=== PATIENT | female | born 1950 | race Caucasian/White ===

== ENCOUNTER 2019-12-23 14:13 | Inpatient (IN) | payer OTHER, MEDICARE ==
[~2019-12-23] VITALS: Ht 167.6 cm; Wt 68.5 kg
[~2019-12-23 14:13] MED LIST: ACETAMINOPHEN-1 EAC1 PO; ARTIFICIAL TEAR15 M1 OPHTHALMIC; AZITHROMYCIN 2250 MG PO; B12INJ IM; CARAFATE 1 GM TA1 G1 PO; CELEXA10 MG PO; CYCLOBENZAPRINE5 MG PO; CYMBALTA30 MG PO; DESYREL150 MG; HYDROCODONE-APA1 TA1 PO; IBUPROFEN 400400 M2 PO; IBUPROFEN 600600 M1 PO; INFED100 MG/2 M IJ; MACROBID 100 M100 M1 PO; MAG-OXIDE400 MG PO; MEDROLDOSEPACK PO; MOBIC15 MG PO; NABUMETONE 750750 M1 PO; NOHOMEMEDICATIONS; NORCO 5-325 TA1 EACH PO; PHENERGAN 25 MG25 M1 PO; POTASSIUM20 PO; PRILOSEC OTC20 MG PO; ROBAXIN500 MG PO; ROXIFOL-D TA500 UNIT PO; SENNA-DOCUSATE1 EACH PO; SKELAXIN 800 M800 M1 PO; TRAZODONE 150150 M1 PO; TRAZODONE HCL50 MG PO; UNICOMPLEX M TA1 TA1 PO; VALIUM5 MG PO; VICODIN 5-3001 EACH PO; XANAX 0.5 MG0.5 MG; XANAX 0.5 MG0.5 MG PO; ZOFRAN4 MG PO; ZYRTEC10 MG PO
[2019-12-23 14:18] VITALS: BP 137/84
[2019-12-23 14:45] LABS: ABSOLUTE LYMPHOCYTES 2.2 thou/uL (0.8-5.3); ABSOLUTE MONOCYTES 0.6 thou/uL (0.0-1.2); ABSOLUTE NEUTROPHILS 3.3 thou/uL (1.6-8.1); BASOPHILS 0.7 %; EOSINOPHILS 0.6 %; HEMATOCRIT 40.8 % (37.0-47.0); HEMOGLOBIN 13.7 gm/dL (12.0-15.0); LYMPHOCYTES 36.2 %; MCH 30.7 pg (26.0-34.0); MCHC 33.6 g/dL (28.0-37.0); MCV 91.3 fL (80.0-100.0); MPV 7.5 fl. (7.2-11.1); NUCLEATED RBCS 0 /100WBC; PLATELET COUNT* 241 thou/uL (150-400); POLYS 53.5 %; RBC 4.48 mil/uL (4.20-5.00); RDW-CV 13.2 % (10.5-14.5); WBC 6.1 thou/uL (4.0-11.0)
[2019-12-23 14:50] LABS: CALCIUM 8.5 mg/dL (8.5-10.1); CREATININE 1.1 mg/dL (0.6-1.3); POTASSIUM 3.1 mmol/L (3.5-5.1)
[2019-12-23 14:56] LABS: APTT 27.3 Seconds (25.0-31.3); PROTIME 10.4 Seconds (9.20-11.50)
[2019-12-23 15:05] LABS: ALBUMIN 3.8 g/dL (3.4-5.0); MAGNESIUM 1.6 mg/dL (1.8-2.4); TOTAL BILIRUBIN 1.5 mg/dL (<0.1-1.0); TOTAL PROTEIN 7.4 g/dL (6.4-8.2)
--- NOTE | 2019-12-23 17:08 | EKG ---
[place] [address] ELECTROCARDIOGRAM REPORT Name: VIRGINIA MARCUS Room: [place] [address] ADM IN .R.#: [id number] Admission: 12/23/19 Attend Phys: Love ponce Sa Discharge: Date of : 48 Date of Service: 12/23/19 1417 Report #: [id number] THIS REPORT FOR: //name// [facility] ED Test Date: 2019-12-23 Test Time: 14:17:43 Pat Name: VIRGINIA MARCUS Department: Room: [facility] Gender: F Manager Engagement: : 1950 Requested By: Order Number: [id number] MD: Kayode Trujillo Measurements Intervals [place] Rate: 76 P: 46 OK: 123 QRS: -26 QRSD: 93 T: 49 QT: 404 QTc: 455 Interpretive Statements Sinus rhythm Borderline left axis deviation Compared to ECG 05/26/2012 16:00:22 No significant changes Electronically Signed On 12-23-2019 17:06:58 CDT by Kayode Trujillo [email or web address] <ELECTRONICALLY SIGNED> By: Kayode Trujillo MD, FACC 12/23/19 1706 1417 1417 Kayode Trujillo MD, [facility] /EPI
[2019-12-23 18:10] LABS: CHOLESTEROL 227 mg/dL (<200); HDL CHOLESTEROL 92 mg/dL (>40); LDL CHOLESTEROL 118 mg/dL (<100); TC:HDL 2.5 Ratio (Not establshd); TRIGLYCERIDE 88 mg/dL (<150); VLDL 18 mg/dL (<40)
[2019-12-23 18:11] LABS: SERUM ASSESSMENT Clear
[2019-12-23 18:43] VITALS: BP 139/69
[2019-12-23 20:00] VITALS: BP 113/57
[2019-12-23 23:42] VITALS: BP 124/56
[2019-12-24 04:19] LABS: HEMATOCRIT 34.8 % (37.0-47.0); MCH 30.7 pg (26.0-34.0); MCHC 33.6 g/dL (28.0-37.0); MCV 91.2 fL (80.0-100.0); MPV 7.3 fl. (7.2-11.1); RBC 3.81 mil/uL (4.20-5.00); RDW-CV 12.9 % (10.5-14.5); WBC 4.8 thou/uL (4.0-11.0)
[2019-12-24 04:27] LABS: HEMOGLOBIN 11.7 gm/dL (12.0-15.0)
[2019-12-24 04:30] VITALS: BP 117/50
[2019-12-24 04:40] LABS: ALBUMIN 2.8 g/dL (3.4-5.0); CALCIUM 7.7 mg/dL (8.5-10.1); MAGNESIUM 1.9 mg/dL (1.8-2.4); PHOSPHORUS* 3.9 mg/dL (2.5-4.9); TOTAL BILIRUBIN 1.5 mg/dL (<0.1-1.0); TOTAL PROTEIN 5.7 g/dL (6.4-8.2)
[2019-12-24 09:05] LABS: AMP/METHAMP Negative (Negative); BARBITURATES Negative (Negative); BENZODIAZEPINES POSITIVE (Negative); COCAINE Negative (Negative); METHADONE Negative (Negative); OPIATES POSITIVE (Negative); PCP Negative (Negative); THC Negative (Negative)
[2019-12-24 11:21] LABS: HEMATOCRIT 35.7 % (37.0-47.0); HEMOGLOBIN 12.2 gm/dL (12.0-15.0)
[2019-12-24 12:28] VITALS: BP 145/42
--- NOTE | 2019-12-24 14:07 | 2DMMODE ---
[place] [address] 2 D/M-MODE ECHOCARDIOGRAM Name: VIRGINIA MARCUS Room: [address] IN M.R.#: [id number] Admission: 12/23/19 Attend Phys: Love ponce Sa Discharge: Date of : 48 Date of Service: 12/24/19 1405 Report #: [id number] THIS REPORT FOR: cc: Gideon Brown MD, Brian M. MD Liston, Michael J. MD [facility] ~ APPROVED REPORT Study performed: 12/24/2019 09:03:31 EXAM: Comprehensive 2D, Doppler, and color-flow Echocardiogram BSA: 1.22 HR: 70 bpm BP: 117/50 mmHg Other Information Study Quality: Good Indications Chest Pain 2D Dimensions IVSd: 9.96 (7-11mm) LVOT Diam: 19.14 (18-24mm) LVDd: 36.56 mm PWd: 9.06 (7-11mm) Ascending Ao: 25.04 (22-36mm) LVDs: 28.33 (25-40mm) Aortic Root: 23.51 mm Volumes Left Atrial Volume (Systole) LA ESV Index: 21.30 mL/m2 Aortic Valve AoV Peak Fitz.: 1.41 m/s AO Peak Gr.: 7.99 mmHg LVOT Max P.70 mmHg AO Mean Gr.: 4.84 mmHg LVOT Mean P.43 mmHg LVOT Max V: 1.29 m/s AO V2 VTI: 34.26 cm LVOT Mean V: 0.85 m/s JYO (VTI): 2.76 cm2 LVOT V1 VTI: 32.91 cm Mitral Valve E/A Ratio: 0.84 MV Decel. Time: 227.91 [place] [address] 2 D/M-MODE ECHOCARDIOGRAM Name: SYLVIAVIRGINIA CHAIDEZ Carlos Room: [address] IN .R.#: [id number] Admission: 12/23/19 Attend Phys: Love ponce Sa Discharge: Date of : 48 Date of Service: 12/24/19 1405 Report #: [id number] MV E Max Fitz.: 0.80 m/s MV PHT: 66.09 ms MVA (PHT): 3.33 cm2 TDI E/Lateral E': 7.27 E/Medial E': 8.89 Medial E' Fitz.: 0.09 m/s Lateral E' Fitz.: 0.11 m/s Pulmonary Valve PV Peak Fitz.: 1.05 m/s PV Peak Gr.: 4.43 mmHg Tricuspid Valve RAP Estimate: 5.00 mmHg TR Peak Gr.: 30.70 mmHg RVSP: 35.70 mmHg PA Pressure: 35.70 mmHg Left Ventricle The left ventricle is normal size. There is normal LV segmental wall motion. There is normal left ventricular wall thickness. Left ventricular systolic function is normal. LVEF is 60-65%. Grade I - abnormal relaxation pattern. Right Ventricle The right ventricle is normal size. The right ventricular systolic function is normal. Atria The left atrium size is normal. The right atrium size is normal. Aortic Valve The aortic valve is normal in structure. No aortic regurgitation is present. There is no aortic valvular stenosis. Mitral Valve The mitral valve is normal in structure. Trace mitral regurgitation. No evidence of mitral valve stenosis. Tricuspid Valve The tricuspid valve is normal in structure. Trace tricuspid regurgitation. Pulmonic Valve The pulmonary valve is normal in structure. There is no pulmonic [place] [address] 2 D/M-MODE ECHOCARDIOGRAM Name: VIRGINIA MARCUS Room: [address]#: [id number] Admission: 12/23/19 Attend Phys: Love ponce Sa Discharge: Date of : 48 Date of Service: 12/24/19 1405 Report #: [id number] Great Vessels The aortic root is normal in size. IVC is normal in size and collapses >50% with inspiration. Pericardium There is no pericardial effusion. <Conclusion> The left ventricle is normal size. There is normal left ventricular wall thickness. Left ventricular systolic function is normal. LVEF is 60-65%. Grade I - abnormal relaxation pattern. Trace mitral regurgitation. Trace tricuspid regurgitation. IVC is normal in size and collapses >50% with inspiration. <ELECTRONICALLY SIGNED> By: Kayode Trujillo MD, FACC 12/24/19 1405 1405 1405 Kayode Trujillo MD, FACC /INF
[2019-12-24 17:10] VITALS: BP 131/67
[2019-12-24 19:30] VITALS: BP 103/41
[2019-12-24 19:45] VITALS: BP 153/95
[2019-12-25 00:06] VITALS: BP 120/65
[2019-12-25 02:08] LABS: GLYCOHEMOGLOBIN (HGB A1C) 5.2 % (4.8-5.6)
[2019-12-25 04:09] VITALS: BP 114/56
[2019-12-25 05:45] LABS: ABSOLUTE LYMPHOCYTES 1.6 thou/uL (0.8-5.3); ABSOLUTE MONOCYTES 0.5 thou/uL (0.0-1.2); ABSOLUTE NEUTROPHILS 2.3 thou/uL (1.6-8.1); BASOPHILS 0.6 %; EOSINOPHILS 0.9 %; HEMOGLOBIN 12.4 gm/dL (12.0-15.0); LYMPHOCYTES 35.8 %; MCH 30.9 pg (26.0-34.0); MCHC 33.6 g/dL (28.0-37.0); MONOCYTES 10.3 %; MPV 7.7 fl. (7.2-11.1); NUCLEATED RBCS 0 /100WBC; PLATELET COUNT* 208 thou/uL (150-400); POLYS 52.4 %; RBC 4.02 mil/uL (4.20-5.00); RDW-CV 12.9 % (10.5-14.5); WBC 4.4 thou/uL (4.0-11.0)
[2019-12-25 05:55] LABS: ALBUMIN 2.8 g/dL (3.4-5.0); CALCIUM 8.3 mg/dL (8.5-10.1); CREATININE 0.8 mg/dL (0.6-1.3); POTASSIUM 4.1 mmol/L (3.5-5.1); TOTAL BILIRUBIN 0.9 mg/dL (<0.1-1.0); TOTAL PROTEIN 5.9 g/dL (6.4-8.2)
[2019-12-25 08:00] VITALS: BP 163/74
[2019-12-25] MEDS ORDERED: CYMBALTA30 MG PO (09:51)
[2019-12-25 16:20] VITALS: BP 133/71
[2019-12-25 20:00] VITALS: BP 149/83
[2019-12-26 00:46] VITALS: BP 116/63
[2019-12-26 03:52] LABS: HEMATOCRIT 36.4 % (37.0-47.0); HEMOGLOBIN 12.4 gm/dL (12.0-15.0)
[2019-12-26 08:00] VITALS: BP 102/60
--- NOTE | 2019-12-26 14:10 | CON ---
[address] [address] CONSULTATION Name: VIRGINIA MARCUS Room: [address] IN M.R.#: [id number] Admission: 12/23/19 Attend Phys: Love Bajwa Discharge: Date of : 48 Report #: [id number] THIS REPORT FOR: //name// cc: Gideon Brown MD, Brian M. MD ~ THIS REPORT FOR: //name// CC: Gideon Escamilla DATE OF SERVICE: 12/24/2019 REQUESTING PHYSICIAN: Love Escamilla MD REASON FOR CONSULT: Noncardiac chest pain and rectal bleeding. There is also abnormal CT suggestive of possible intussusception. HISTORY OF PRESENT ILLNESS: This is a 69-year-old female with a history of colonoscopy in the past couple of years, who reports that she usually has IBS symptoms and her stools are loose. She has never had rectal bleeding, but prior to her admission, she noted that she had a lot of blood in her underwear. She also was complaining of noncardiac chest pain, which has been worked out. She denies nausea, vomiting, dysphagia and odynophagia. The patient reports that she has had gastric surgeries in the past, but does not know the details. PAST MEDICAL HISTORY: Significant for history of irritable bowel syndrome diarrhea predominant, kidney stone, tonsillectomy, breast reduction, gallbladder disease, status post cholecystectomy, appendectomy and hysterectomy. ALLERGIES: SIGNIFICANT TO CONTRAST DYE, DOXYCYCLINE, IODINE, MORPHINE, NAPROXEN AND TETANUS AND DIPHTHERIA TOXOID. MEDICATIONS: Please refer to MAR. SOCIAL HISTORY: The patient lives at home. Denies tobacco or alcohol use. Apparently, this is around anniversary when her passed. PHYSICAL EXAMINATION: VITAL SIGNS: Reveals blood pressure of 163/74, respirations 16, pulse 71, temperature 98.1. LUNGS: Clear. CARDIOVASCULAR: Regular. ABDOMEN: Soft, nontender, nondistended[place] [address] CONSULTATION Name: SYLVIAKAYLYNNJORICathleen Gonzalez Room: [address] IN [facility]#: [id number] Admission: 12/23/19 Attend Phys: Love Bajwa Discharge: Date of : 48 Report #: [id number] LABORATORY DATA: Reveal sodium of 141, potassium 4.1, BUN is 6, creatinine 0.8. Liver function tests are all within normal limit. Albumin is 2.8, total protein 5.9. INR is 1.0. WBC is 4.4 with hemoglobin of 12.4 and platelets of 208. IMAGING: CT as discussed above. ASSESSMENT AND PLAN: The patient with rectal bleeding, who also has abnormal CT and noncardiac chest pain. She claims that she has had gastric surgery in the past, but does not know the detail and why it was done. We will perform upper and lower endoscopy tomorrow to further evaluate her symptoms. The patient is agreeable with plan. <ELECTRONICALLY SIGNED> By: Tigist Juarez MD 12/26/19 1410 1547 [id number] Juarez MD /nt
[2019-12-26 15:45] VITALS: BP 147/81
[2019-12-26 20:00] VITALS: BP 121/68
[2019-12-27] VITALS: BP 124/60
[2019-12-27 05:03] LABS: CALCIUM 8.1 mg/dL (8.5-10.1); CREATININE 0.9 mg/dL (0.6-1.3); MAGNESIUM 1.9 mg/dL (1.8-2.4); POTASSIUM 3.6 mmol/L (3.5-5.1)
[2019-12-27] MEDS ORDERED: MIRALAX17 GM PO (09:22)
[2019-12-27 11:41] VITALS: BP 134/86
[2019-12-27 11:45] VITALS: BP 124/60
== END 2019-12-27 12:35 | disposition home or self-care (01) | DRG 378 ==
LOC: M.ERS 14:13 → M.TBA-ER 15:51 → M.2W 15:51
PROVIDERS: Emergency Medicine Emergency Medical Services; Internal Medicine; Internal Medicine Gastroenterology; Nurse Practitioner; Surgery; ADMIT Family Medicine
PROC: 0DJD8ZZ Inspection of Lower Intestinal Tract, Via Natural or Artificial Opening Endoscopic (ICD-10-PCS; principal; 2019-12-26)
PROC: 0DJ08ZZ Inspection of Upper Intestinal Tract, Via Natural or Artificial Opening Endoscopic (ICD-10-PCS; principal; 2019-12-26)
DX: K92.2 Gastrointestinal hemorrhage, unspecified (principal); K56.1 Intussusception; E44.0 Moderate protein-calorie malnutrition; G47.00 Insomnia, unspecified; E87.6 Hypokalemia; E83.42 Hypomagnesemia; Z60.2 Problems related to living alone; F41.1 Generalized anxiety disorder; K58.9 Irritable bowel syndrome, unspecified; R07.89 Other chest pain; K64.8 Other hemorrhoids; Z87.442 Personal history of urinary calculi; Z90.49 Acquired absence of other specified parts of digestive tract; Z68.24 Body mass index [BMI] 24.0-24.9, adult; Z88.7 Allergy status to serum and vaccine; Z88.8 Allergy status to other drugs, medicaments and biological substances; Z88.6 Allergy status to analgesic agent; Z91.041 Radiographic dye allergy status; Z80.0 Family history of malignant neoplasm of digestive organs; Z79.899 Other long term (current) drug therapy

== ENCOUNTER 2020-06-02 01:04 | Inpatient (IN) | payer OTHER, MEDICARE ==
[~2020-06-02] VITALS: Ht 167.6 cm; Wt 69.9 kg
[2020-06-02] VITALS (7 sets, daily range): BP systolic 134–147; BP diastolic 54–99
--- NOTE | ~2020-06-02 | CON ---
[address] [address] CONSULTATION Name: VIRGINIA MARCUS Room: [address] IN M.R.#: [id number] Admission: 06/02/20 Attend Phys: Surya Cai MD Discharge: Date of : 48 Report #: [id number] THIS REPORT FOR: //name// cc: Gideon Brown MD, Brian M. MD ~ DATE OF SERVICE: 06/02/2020 REQUESTING PHYSICIAN: Ileana Hernadez MD INDICATION FOR CONSULTATION: COVID-19. HISTORY OF PRESENT ILLNESS: This is a 69-year-old female with past medical history as mentioned above. Patient is a lifetime nonsmoker. The patient does not have a previously diagnosed history of lung disease. The patient is now admitted with progressively increasing cough and shortness of breath as well as body aches over the last several days. The patient also had generalized malaise. The patient does work at 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 She does report a reduction in appetite and has no other complaints. At this time she is on room air and is not febrile. REVIEW OF SYSTEMS: A 12 points is negative except as mentioned above. PAST MEDICAL HISTORY: Multiple allergies, possible history of bronchial asthma, malabsorption syndrome with low magnesium and potassium, irritable bowel syndrome, kidney stones, breast reduction, tonsillectomy, cholecystectomy, hysterectomy, iron deficiency anemia, B12 deficiency, anxiety, depression, trauma to the right side of face and mumps, measles, rubella. SOCIAL HISTORY: Lifetime nonsmoker. No known history of heavy alcohol use or illegal drug use. CURRENT MEDICATIONS: List in [employer] reviewed. HOME MEDICATIONS: List also in [employer] reviewed. ALLERGIES: THERE ARE MULTIPLE ALLERGIES LISTED ON THE RECORD THESE ARE REVIEWED, AMONGST OTHERS THE PATIENT IS REPORTED TO BE ALLERGIC TO IODINE, DOXYCYCLINE, SEAFOOD, AND MORPHINE. FAMILY HISTORY: There is no pertinent family history. PHYSICAL EXAMINATION: GENERAL: She was alert, awake and oriented, does not appear to be in any distress at this time. VITAL SIGNS: Had a pulse of 78 and a blood pressure of 140/69, saturating 93% [place] [address] CONSULTATION Name: VIRGINIA MARCUS Room: [address] IN [facility]#: [id number] Admission: 06/02/20 Attend Phys: Surya Cai MD Discharge: Date of : 48 Report #: [id number] on room air, respiratory rate 16, afebrile with a temperature of 36.3. HEENT: Head is normocephalic and atraumatic. NECK: Does not show raised JVP. CHEST: Essentially clear to auscultation. HEART: Regular, no murmur. ABDOMEN: Soft and nontender. EXTREMITIES: Lower extremities show no edema, no calf tenderness. SKIN: Dry and intact. NEUROLOGICAL: Moves all extremities bilaterally equally and spontaneously with no focal deficit identified. LABORATORY DATA: The patient's chest x-ray does show some hyperinflation. I do not see any significant infiltrates or pulmonary vascular congestion. The patient's lab work is in [employer] and this is reviewed. She is positive for COVID-19 antigen. ASSESSMENT AND PLAN: 1. COVID-19, I agree with treating her with Solu-Medrol as it does appear to me that she has had bronchospasm as well as discussed below. If she does not improve, then I do plan to have her switch this over to oral dexamethasone tomorrow. Recommend watching her respiratory status and O2 saturations closely. If there is any decline I will have a very low threshold of starting remdesivir. 2. Bronchospasm/history of multiple allergies/possible underlying bronchial asthma. The patient's chest x-ray does show some hyperinflation, which does appear to be more than her previous chest x-rays. She also does have a history of multiple allergies. It is possible that she has previously undiagnosed underlying asthma as well. This may need to be evaluated further later. For now she is on Solu-Medrol and I did add an albuterol inhaler. 3. Acute bronchitis/possible underlying bacterial secondary infection, it appears reasonable to continue Zithromax and ceftriaxone at this time. We will follow and adjust therapy accordingly. 4. Deep venous thrombosis prophylaxis, Lovenox. By: 0009 0051Aana lilia Miller MD /nt
[~2020-06-02 01:04] MED LIST changes: +CYANOCOBAL1000 MCG/1 IM; +DERMACINRX5000 UNI1 PO; +MIRALAX17 GM PO; -ROXIFOL-D TA500 UNIT PO; -XANAX 0.5 MG0.5 MG PO; +XANAX1 MG PO
[2020-06-02 01:50] LABS: ABSOLUTE LYMPHOCYTES 1.3 thou/uL (0.8-5.3); ABSOLUTE MONOCYTES 0.5 thou/uL (0.0-1.2); ABSOLUTE NEUTROPHILS 2.2 thou/uL (1.6-8.1); BASOPHILS 1.1 %; EOSINOPHILS 0.4 %; HEMOGLOBIN 13.7 gm/dL (12.0-15.0); LYMPHOCYTES 32.1 %; MCHC 33.4 g/dL (28.0-37.0); MCV 92.8 fL (80.0-100.0); MPV 6.7 fl. (7.2-11.1); NUCLEATED RBCS 0 /100WBC; PLATELET COUNT* 187 thou/uL (150-400); POLYS 53.4 %; RBC 4.42 mil/uL (4.20-5.00); RDW-CV 12.5 % (10.5-14.5); WBC 4.1 thou/uL (4.0-11.0)
[2020-06-02 01:59] LABS: CALCIUM 8.4 mg/dL (8.5-10.1); CREATININE 1.1 mg/dL (0.6-1.3); POTASSIUM 3.4 mmol/L (3.5-5.1)
[2020-06-02 02:03] LABS: INFLUENZA A ANTIGEN Negative (Negative); INFLUENZA B ANTIGEN Negative (Negative)
[2020-06-02 02:04] LABS: ALBUMIN 3.4 g/dL (3.4-5.0); TOTAL BILIRUBIN 0.6 mg/dL (<0.1-1.0)
[2020-06-02] MEDS ORDERED: BENADRYL25 MG PO (05:38)
[2020-06-02] MEDS ORDERED: DESYREL150 MG PO (05:38)
[2020-06-03] VITALS: BP 139/75
[2020-06-03 04:30] VITALS: BP 138/56
[2020-06-03 05:37] LABS: HEMOGLOBIN 12.7 gm/dL (12.0-15.0); MCH 30.9 pg (26.0-34.0); MCHC 33.3 g/dL (28.0-37.0); MCV 92.7 fL (80.0-100.0); MPV 7.3 fl. (7.2-11.1); RBC 4.1 mil/uL (4.20-5.00); RDW-CV 12.5 % (10.5-14.5); WBC 12.5 thou/uL (4.0-11.0)
[2020-06-03 05:59] LABS: CALCIUM 8.2 mg/dL (8.5-10.1); CREATININE 0.8 mg/dL (0.6-1.3); MAGNESIUM 1.8 mg/dL (1.8-2.4); POTASSIUM 4.1 mmol/L (3.5-5.1); TOTAL BILIRUBIN 0.5 mg/dL (<0.1-1.0); TOTAL PROTEIN 6.3 g/dL (6.4-8.2)
[2020-06-03] MEDS ORDERED: VENTOLIN HFA 1818 GM INH (07:15)
[2020-06-03] MEDS ORDERED: LEVOFLOXACIN750 MG PO (07:15)
[2020-06-03] MEDS ORDERED: PREDNISONE 10 M10 MG PO (07:15)
[2020-06-03 08:00] VITALS: BP 175/70
[2020-06-03 12:00] VITALS: BP 140/72
--- NOTE | 2020-06-03 13:40 | EKG ---
[place] [address] ELECTROCARDIOGRAM REPORT Name: VIRGINIA MARCUS Room: [address] ADM IN M.R.#: [id number] Admission: 06/02/20 Attend Phys: Surya Cai, Discharge: Date of : 48 Date of Service: 06/02/20 0348 Report #: [id number] THIS REPORT FOR: //name// [facility] ED Test Date: 2020-06-02 Test Time: 03:48:34 Pat Name: VIRGINIA MARCUS Department: Room: [facility] Gender: F Histotechnologist: FANNIE : 1950 Requested By: Odell Laws Order Number: [id number] MD: Gray Sotelo Measurements Intervals [place] Rate: 58 P: 25 TN: 137 QRS: -33 QRSD: 96 T: 38 QT: 425 QTc: 418 Interpretive Statements Sinus rhythm Left axis deviation Abnormal R-wave progression, late transition Compared to ECG 12/23/2019 14:17:43 No significant changes Electronically Signed On 06-03-2020 13:40:26 CDT by Gray Sotelo [email or web address] <ELECTRONICALLY SIGNED> By: Gray Sotelo MD, FACC 06/03/20 1340 7 Gray Sotelo MD, FAC /EPI
[2020-06-03 13:41] VITALS: BP 175/70
== END 2020-06-03 15:00 | disposition home or self-care (01) | DRG 177 ==
LOC: M.ERS 01:04 → M.TBA-ER 03:11 → M.2W 03:11 → M.TBA-ER 03:11 → M.2W 04:31
PROVIDERS: Family Medicine; Internal Medicine; ADMIT Internal Medicine; ATTEND Internal Medicine
DX: U07.1 COVID-19 (principal); J12.89 Other viral pneumonia; J15.6 Pneumonia due to other Gram-negative bacteria; F41.9 Anxiety disorder, unspecified; F32.9 Major depressive disorder, single episode, unspecified; J20.9 Acute bronchitis, unspecified; D50.9 Iron deficiency anemia, unspecified; Z87.442 Personal history of urinary calculi; Z90.49 Acquired absence of other specified parts of digestive tract; Z90.710 Acquired absence of both cervix and uterus; Z88.7 Allergy status to serum and vaccine; Z88.8 Allergy status to other drugs, medicaments and biological substances; Z88.6 Allergy status to analgesic agent; Z91.041 Radiographic dye allergy status; Z91.013 Allergy to seafood; Z79.899 Other long term (current) drug therapy; Z23 Encounter for immunization

== ENCOUNTER 2020-06-10 04:07 | Inpatient (IN) | payer OTHER, MEDICARE ==
[~2020-06-10] VITALS: Ht 167.6 cm; Wt 69.4 kg
[~2020-06-10 04:07] MED LIST changes: +BENADRYL25 MG PO; +DESYREL150 MG PO; +LEVOFLOXACIN750 MG PO; +PREDNISONE 10 M10 MG PO; +VENTOLIN HFA 1818 GM INH
[2020-06-10 05:00] VITALS: BP 118/61
[2020-06-10 05:18] LABS: ABSOLUTE LYMPHOCYTES 2.4 thou/uL (0.8-5.3); ABSOLUTE MONOCYTES 0.8 thou/uL (0.0-1.2); ABSOLUTE NEUTROPHILS 3.3 thou/uL (1.6-8.1); BASOPHILS 0.7 %; EOSINOPHILS 0.4 %; HEMATOCRIT 42.6 % (37.0-47.0); HEMOGLOBIN 14.3 gm/dL (12.0-15.0); LYMPHOCYTES 36.7 %; MCH 30.9 pg (26.0-34.0); MCHC 33.6 g/dL (28.0-37.0); MCV 92.1 fL (80.0-100.0); MONOCYTES 11.6 %; MPV 7.7 fl. (7.2-11.1); NUCLEATED RBCS 0 /100WBC; PLATELET COUNT* 181 thou/uL (150-400); POLYS 50.6 %; RBC 4.63 mil/uL (4.20-5.00); RDW-CV 12.4 % (10.5-14.5); WBC 6.5 thou/uL (4.0-11.0)
[2020-06-10 05:28] LABS: CALCIUM 8.2 mg/dL (8.5-10.1); CREATININE 1.1 mg/dL (0.6-1.3); POTASSIUM 3.4 mmol/L (3.5-5.1)
[2020-06-10 05:38] LABS: ALBUMIN 3.1 g/dL (3.4-5.0); TOTAL BILIRUBIN 0.7 mg/dL (<0.1-1.0)
[2020-06-10 11:06] VITALS: BP 126/65
--- NOTE | 2020-06-10 11:35 | EKG ---
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: FANNIE : 1950 Requested By: Chris Butts Order Number: [id number] MD: Binu Bradley Measurements Intervals [place] Rate: 81 P: 18 MS: 123 QRS: -37 QRSD: 92 T: 49 QT: 377 QTc: 438 Interpretive Statements Sinus rhythm Left axis deviation Baseline wander in lead(s) V2,V3 Compared to ECG 06/02/2020 03:48:34 No significant changes Electronically Signed On 06-10-2020 11:35:32 THERMOFORMING OPERATOR by Binu Bradley [email or web address] <ELECTRONICALLY SIGNED> By: Binu Bradley MD, [facility] 06/10/20 1135 0447 0447 Binu Bradley MD, [facility] /EPI
[2020-06-10 14:57] VITALS: BP 122/51
[2020-06-10 18:55] VITALS: BP 129/63
[2020-06-10 22:28] VITALS: BP 112/59
[2020-06-10 23:00] VITALS: BP 122/69
[2020-06-11 04:36] VITALS: BP 97/47
[2020-06-11 05:01] LABS: HEMATOCRIT 35.6 % (37.0-47.0); MCH 31.3 pg (26.0-34.0); MCHC 33.4 g/dL (28.0-37.0); MCV 93.6 fL (80.0-100.0); MPV 7.7 fl. (7.2-11.1); RBC 3.8 mil/uL (4.20-5.00); RDW-CV 12.6 % (10.5-14.5); WBC 6.3 thou/uL (4.0-11.0)
[2020-06-11 05:16] LABS: HEMOGLOBIN 11.9 gm/dL (12.0-15.0)
[2020-06-11 05:25] LABS: CALCIUM 7.8 mg/dL (8.5-10.1); CREATININE 0.8 mg/dL (0.6-1.3); MAGNESIUM 1.7 mg/dL (1.8-2.4)
[2020-06-11 08:00] VITALS: BP 113/59
[2020-06-11 12:58] VITALS: BP 146/69
--- NOTE | 2020-06-11 14:37 | NUR ---
Pt covid positive, moved to covid unit. Pt did not answer phone, spoke with Maximus truong, on phone. Pt resides at home with her dtr. Active and independent, continues to work. No DME. No hx of HH or SNF. Pt's dtr has also tested positive for covid, grandson is negative. Per alexi, Pt reported heavy CP with coughing prior to admission. Goal is home at [place]. Following.
[2020-06-11 16:41] VITALS: BP 116/39
--- NOTE | 2020-06-11 18:42 | NUR ---
ASSUMED PT CARE AT 0730, PT AOX4, NO C/O PAIN OR SHORTNESS OF BREATH. 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 PT HAD FURTHER C/O ANXIETY THIS AFTERNOON TREATED W/ XANAX. PT HAD CTA OF CHEST TODAY, SEE RESULTS. PT GOAL IS TO WORK ON MANAGING ANXIETY AND INCREASING ACTIVITY. AM ASSESSMENT CHARTED, MEDS PER MAR, HOURLY ROUNDING OBSERVED, FALL PRECAUTIONS IN PLACE, CALL LIGHT W/IN REACH, PT MOVED TO ROOM 208 IN [facility].
[2020-06-11 21:00] VITALS: BP 119/54
[2020-06-11 23:59] VITALS: BP 137/61
[2020-06-12 04:55] VITALS: BP 113/54
[2020-06-12 08:00] VITALS: BP 117/46
--- NOTE | 2020-06-12 08:12 | NUR ---
ASSUMED PT'S CARE @ 1900. PT ALERT AND ORIENTED. VSS ON RA. MEDS GIVEN PER EMAR. PT DENIED PAIN THIS SHIFT. XANAX GIVEN @ HS PER PT'S REQUEST. TYLENOL GIVEN THIS AM FOR MEADOWS. STB ASSIST. CALL LIGHT WITHIN REACH. HOURLY ROUNDINGS MADE. WILL CONTINUE TO MONITOR.
[2020-06-12 13:31] VITALS: BP 131/68
--- NOTE | 2020-06-12 16:16 | CON ---
[address] [address] CONSULTATION Name: VIRGINIA MARCUS Room: [address] IN M.R.#: [id number] Admission: 06/11/20 Attend Phys: Surya Cai MD Discharge: Date of : 48 Report #: [id number] THIS REPORT FOR: //name// cc: Gideon Brown MD, Brian M. MD ~ DATE OF SERVICE: 06/11/2020 REQUESTING PHYSICIAN: Dr. Hernadez. INDICATION FOR CONSULTATION: COVID-19. HISTORY OF PRESENT ILLNESS: This is a 69-year-old female, we saw her recently in this hospital ____ with COVID-19. The patient is a lifetime nonsmoker and does not have a previous history of any lung disease. She works at [employer]. 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 The patient had initially developed decrease in appetite. Subsequently, she had increase in cough and shortness of breath as well. She was admitted to this hospital. She was on room air, did not receive remdesivir; however, she did receive steroids as well as Levaquin. The patient improved and was discharged. She is now admitted again with persistent complaints of shortness of breath and she is feeling more weak. She also continues to have a nonproductive cough. She remains on room air. The patient answers to the negative for 12 questions for review of systems except as mentioned above. PAST MEDICAL HISTORY: She has a history of multiple allergies. It is possible that she has underlying bronchial asthma, but she does not carry the diagnosis. She has malabsorption syndrome with low magnesium and low potassium, irritable bowel syndrome, kidney stones, breast reduction, tonsillectomy, cholecystectomy, hysterectomy, iron deficiency anemia, B12 deficiency, anxiety, depression, trauma to the right side of face and mumps, measles, rubella. SOCIAL HISTORY: Lifetime nonsmoker. No known history of heavy alcohol use or illegal drug use. CURRENT MEDICATIONS: List in [facility] reviewed. HOME MEDICATIONS: List in [facility] reviewed. FAMILY HISTORY: There is no pertinent family history. ALLERGIES: IODINE, DOXYCYCLINE, SEAFOOD, AND MORPHINE. PHYSICAL EXAMINATION: GENERAL: She is alert, awake and oriented. VITAL SIGNS: In the records. These are reviewed. [place] [address] CONSULTATION Name: VIRGINIA MARCUS Room: [address]#: [id number] Admission: 06/11/20 Attend Phys: Surya Cai MD Discharge: Date of : 48 Report #: [id number] air, she is saturating from 93-96%. NECK: Does not show raised JVP. CHEST: Essentially clear to auscultation. HEART: Regular, no murmur. ABDOMEN: Soft and nontender. EXTREMITIES: Lower extremities show no edema, no calf tenderness. LABORATORY DATA: The patient had a CTA chest today. After premedication she has some small peripheral infiltrate consistent with atypical pneumonia or viral pneumonia. Lab work is in [facility] and this is reviewed. ASSESSMENT AND PLAN: 1. COVID-19. I agree with dexamethasone is currently ordered. Recommend watching O2 saturations closely. If the patient's O2 saturation drops below 94% on room air or even if she does not require oxygen or if there is any other deterioration, then I would have a very low threshold of ordering remdesivir. 2. Bronchospasm/history of multiple allergies/possible underlying bronchial asthma. Her chest is clear to auscultation now. She did appear to be bronchospastic when I examined her during the last admission, I feel that bronchospasm does play a role in her symptoms. She is on dexamethasone as well as albuterol as above. Should she fails to improve or worsen, I have a low threshold of adding nebulizers and/or increase in her steroid dose. The patient may also benefit from further evaluation as an outpatient later regarding possible underlying asthma. 3. Pulmonary infiltrates, it is likely secondary to COVID-19; however, I feel that it is reasonable to continue broad-spectrum antibiotics for now. Therefore, I did not make any change at this time. 4. Deep vein thrombosis prophylaxis. She is on Lovenox. Thanks for this consultation. <ELECTRONICALLY SIGNED> By: Miki Miller MD 06/12/20 1616 10 [id number] lilia Miller MD /nt
--- NOTE | 2020-06-12 17:00 | NUR ---
SPOKE WITH PT.ON PHONE DUE TO BEING IN ISOLATION FOR COVID 19. SHE PLANS TO DISCHARGE TOMORROW. WAS WANTING A SHOWER CHAIR AND OXIMETER. EXPLAINED INSURANCE DOES NOT COVER THE COST OF EITHER . SHE COULD PURCHASE THEM AT A LOCAL PHARMACY-[facility] AT A MINIMAL CHARGE OR MEDICAL SUPPLY STORE. SHE WAS CONCERNED ABOUT HER FMLA PAPERS. SHE SAID THEY WERE TO BE ON HER CHART FOR TO FILL OUT BUT SAID THEY COULD EMAIL THEM TO CM AND WE COULD GET THEM TO . NO EMAIL NOTED FOR THIS CM. TOLD PT.I WOULD CALL HER ON CELL ON MONDAY ABOUT FMLA PAPERS.
[2020-06-12 17:36] VITALS: BP 146/63
--- NOTE | 2020-06-12 19:07 | NUR ---
ASSUMED PT CARE AT 0730, PT AOX4, NO C/O PAIN OR SHORTNESS OF BREATH. PT HAD SOME LEG SPASMS THIS AFTERNOON TREATED W/ PRN FLEXERIL. PT REFUSED TO WORK W/ RT THIS AFTERNOON FOR WALKING O2. 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 AM ASSESSMENT CHARTED, MEDS PER OCT, HOURLY ROUNDING OBSERVED, FALL PRECAUTIONS IN PLACE, CALL LIGHT W/IN REACH.
[2020-06-12 20:15] VITALS: BP 125/64
[2020-06-13] VITALS: BP 129/77; BP 144/72
[2020-06-13 04:00] VITALS: BP 137/62
--- NOTE | 2020-06-13 06:42 | NUR ---
PT SLEPT OFF AND ON OVERNIGHT. DENIES PAIN, STATES SHE JUST FEELS TIRED. UP AD EDITH TO BR TO VOID WITHOUT DIFFICULTY. SL IVS, IV ABX GIVEN THIS MORNING. REMAINS ON COVID ISOLATION. ABLE TO USE CALL LITE AND MAKE NEEDS KNOWN. ANTICIPATING DISCHARGE TODAY. ROOM AIR. TELE SR, SB.
[2020-06-13 08:00] VITALS: BP 150/71
[2020-06-13 12:10] VITALS: BP 150/71
--- NOTE | 2020-06-13 13:14 | NUR ---
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
[2020-06-13] MEDS ORDERED: FLEXERIL PO (13:49)
== END 2020-06-13 13:48 | disposition home or self-care (01) | DRG 177 ==
LOC: M.ERS 04:07 → M.TBA-ER 06:19 → M.2W 22:52 → M.ORTHSURG 06-11 11:56
PROVIDERS: Emergency Medicine Emergency Medical Services; Internal Medicine; ADMIT Internal Medicine; ATTEND Internal Medicine
DX: U07.1 COVID-19 (principal); J96.01 Acute respiratory failure with hypoxia; J12.89 Other viral pneumonia; D50.9 Iron deficiency anemia, unspecified; F41.9 Anxiety disorder, unspecified; F32.9 Major depressive disorder, single episode, unspecified; Z87.442 Personal history of urinary calculi; Z90.49 Acquired absence of other specified parts of digestive tract; Z90.710 Acquired absence of both cervix and uterus; Z88.8 Allergy status to other drugs, medicaments and biological substances; Z88.6 Allergy status to analgesic agent; Z91.041 Radiographic dye allergy status; Z91.013 Allergy to seafood

== ENCOUNTER 2020-06-22 14:07 | Emergency (ER) | payer OTHER, MEDICARE ==
[~2020-06-22] VITALS: Ht 162.6 cm; Wt 63.5 kg
[~2020-06-22 14:07] MED LIST changes: +FLEXERIL PO
[2020-06-22 16:02] LABS: ABSOLUTE BASOPHILS 0.1 thou/uL (0.0-0.2); ABSOLUTE EOSINOPHILS 0.1 thou/uL (0.0-0.7); ABSOLUTE LYMPHOCYTES 1.9 thou/uL (0.8-5.3); ABSOLUTE MONOCYTES 0.7 thou/uL (0.0-1.2); ABSOLUTE NEUTROPHILS 5.4 thou/uL (1.6-8.1); BASOPHILS 0.9 %; EOSINOPHILS 0.7 %; HEMATOCRIT 36.8 % (37.0-47.0); HEMOGLOBIN 12.4 gm/dL (12.0-15.0); LYMPHOCYTES 23.1 %; MCH 31.5 pg (26.0-34.0); MCHC 33.8 g/dL (28.0-37.0); MCV 93.3 fL (80.0-100.0); MONOCYTES 9.2 %; MPV 6.7 fl. (7.2-11.1); NUCLEATED RBCS 0 /100WBC; PLATELET COUNT* 261 thou/uL (150-400); POLYS 66.1 %; RBC 3.94 mil/uL (4.20-5.00); RDW-CV 12.6 % (10.5-14.5); WBC 8.1 thou/uL (4.0-11.0)
[2020-06-22 16:16] LABS: CALCIUM 8.3 mg/dL (8.5-10.1); CREATININE 0.9 mg/dL (0.6-1.3)
[2020-06-22 16:29] LABS: ALBUMIN 2.9 g/dL (3.4-5.0); TOTAL BILIRUBIN 0.6 mg/dL (<0.1-1.0); TOTAL PROTEIN 6.4 g/dL (6.4-8.2)
[2020-06-22] MEDS ORDERED: CEFDINIR300 MG PO (17:14)
--- NOTE | 2020-06-22 17:21 | EKG ---
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: [facility] : 1950 Requested By: Celina Reveles Order Number: [id number] MD: Kayode Trujillo Measurements Intervals [place] Rate: 79 P: 14 DE: 142 QRS: -41 QRSD: 93 T: 45 QT: 393 QTc: 451 Interpretive Statements Sinus rhythm Left axis deviation Compared to ECG 06/10/2020 04:47:17 No significant changes Electronically Signed On 06-22-2020 17:21:03 FACING BASTER by Kayode Trujillo [email or web address] <ELECTRONICALLY SIGNED> By: Kayode Trujillo MD, [facility] 06/22/20 1721 1543 154 Kayode Trujillo MD, FAC /EPI
[2020-06-22 17:28] VITALS: BP 136/102
== END 2020-06-22 17:30 | disposition home or self-care (01) ==
LOC: M.ERS 14:07
PROVIDERS: Nurse Practitioner Family
DX: J18.9 Pneumonia, unspecified organism (principal); Z20.828 Contact with and (suspected) exposure to other viral communicable diseases; Z88.1 Allergy status to other antibiotic agents; Z88.7 Allergy status to serum and vaccine; Z91.041 Radiographic dye allergy status; Z88.5 Allergy status to narcotic agent; Z91.013 Allergy to seafood; Z88.8 Allergy status to other drugs, medicaments and biological substances; Z87.442 Personal history of urinary calculi; Z90.89 Acquired absence of other organs; Z90.49 Acquired absence of other specified parts of digestive tract; Z90.710 Acquired absence of both cervix and uterus; Z86.2 Personal history of diseases of the blood and blood-forming organs and certain disorders involving the immune mechanism